=== PATIENT | male | born 2000 | race Caucasian/White ===

== ENCOUNTER 2023-05-08 02:31 | Emergency (ER) | payer BC ==
[2023-05-08] MEDS ORDERED: Ondansetron ODT 4 MG TAB ONE (02:51)
== END 2023-05-08 02:55 | disposition home or self-care (01) ==
LOC: CSHERS 02:31
DX: K29.00 Acute gastritis without bleeding (principal); R11.2 Nausea with vomiting, unspecified
CPT/HCPCS: 99283; Q0162

== ENCOUNTER 2025-04-11 11:50 | Emergency (ER) | payer BC, SELFPAY ==
[2025-04-11 12:54] LABS: #Basophils 0.03 10x3/uL (0.0-0.2); #Eosinophils 0.09 10x3/uL (0.0-0.5); #Monocytes 0.45 10x3/uL (0.0-1.1); #Neutrophils 7.98 10x3/uL (1.5-8.4); %Basophils 0.3 % (0.0-2.0); %Eosinophils 0.9 % (0.0-6.0); %Lymphocytes 13.4 % (18.0-47.0); %Monocytes 4.5 % (0.0-10.0); %Neutrophils 80.6 % (40.0-75.0); Hematocrit 44.0 % (38.8-50.0); Hemoglobin 14.8 g/dL (13.5-17.5); Mean Corpuscular Hemoglobin 27.4 pg (27.0-33.0); Mean Corpuscular Volume 81.5 fL (81.2-95.1); Platelet Count 251 10x3/uL (150-450); Red Blood Cell (RBC) Count 5.40 10x6/uL (4.32-5.72); White Blood Cell (WBC) Count 9.91 10x3/uL (3.5-10.5)
[2025-04-11] MEDS ORDERED: diphenhydrAMINE 50 MG/ML VIAL ONE (12:57)
[2025-04-11] MEDS ORDERED: Metoclopramide HCl 10 MG (2 mL) VIAL ONE (12:57)
[2025-04-11 13:30] LABS: ALT (SGPT) 11 U/L (Less than 45); AST (SGOT) 20 U/L (11-34); Albumin 4.8 g/dL (3.1-4.5); Alkaline Phosphatase 59 U/L (40-110); Anion Gap 18 mmol/L (10-20); BUN (Urea Nitrogen) 10 mg/dL (8.9-20.6); Bilirubin, Total 2.0 mg/dL (0.3-1.2); Calc. Creatinine Clearance 0 mL/min (70-130); Calcium 9.9 mg/dL (7.8-10.44); Carbon Dioxide 20 mmol/L (22-29); Chloride 107 mmol/L (98-107); Globulin 2.8 g/dL (2.4-3.5); Glucose 176 mg/dL (70-105); Lipase 22 U/L (8-78); Potassium 3.4 mmol/L (3.5-5.1); Sodium 142 mmol/L (136-145)
[2025-04-11] MEDS ORDERED: Droperidol 5 MG/2 ML VIAL ONE (14:28)
== END 2025-04-11 15:35 | disposition home or self-care (01) ==
LOC: CSHERS 11:50
DX: R11.2 Nausea with vomiting, unspecified (principal)
CPT/HCPCS: 36415; 80053; 83690; 85025; 96361; 96374; 96375; J1200; J1790; J2765

== ENCOUNTER 2025-04-12 20:40 | Emergency (ER) | payer SELFPAY ==
[2025-04-12] MEDS ORDERED: Droperidol 5 MG/2 ML VIAL ONE (21:13)
[2025-04-12 21:24] LABS: #Basophils 0.03 10x3/uL (0.0-0.2); #Eosinophils Less than 0.03 10x3/uL (0.0-0.5); #Monocytes 0.87 10x3/uL (0.0-1.1); #Neutrophils 8.27 10x3/uL (1.5-8.4); %Basophils 0.3 % (0.0-2.0); %Eosinophils 0.1 % (0.0-6.0); %Lymphocytes 19.7 % (18.0-47.0); %Monocytes 7.6 % (0.0-10.0); %Neutrophils 72.0 % (40.0-75.0); Hematocrit 43.5 % (38.8-50.0); Hemoglobin 15.0 g/dL (13.5-17.5); Mean Corpuscular Hemoglobin 27.8 pg (27.0-33.0); Mean Corpuscular Volume 80.7 fL (81.2-95.1); Platelet Count 264 10x3/uL (150-450); Red Blood Cell (RBC) Count 5.39 10x6/uL (4.32-5.72); White Blood Cell (WBC) Count 11.48 10x3/uL (3.5-10.5)
[2025-04-12 21:41] LABS: ALT (SGPT) 12 U/L (Less than 45); AST (SGOT) 16 U/L (11-34); Albumin 5.1 g/dL (3.1-4.5); Alkaline Phosphatase 64 U/L (40-110); Anion Gap 16 mmol/L (10-20); BUN (Urea Nitrogen) 11 mg/dL (8.9-20.6); Bilirubin, Total 2.6 mg/dL (0.3-1.2); Calc. Creatinine Clearance 0 mL/min (70-130); Calcium 10.1 mg/dL (7.8-10.44); Carbon Dioxide 22 mmol/L (22-29); Chloride 105 mmol/L (98-107); Globulin 2.9 g/dL (2.4-3.5); Glucose 145 mg/dL (70-105); Lipase 47 U/L (8-78); Potassium 3.2 mmol/L (3.5-5.1); Sodium 140 mmol/L (136-145)
[2025-04-12 23:20] LABS: Glucose, Urine (Dipstick) Normal (Negative); Leukocyte 25 (Negative); Protein, Urine (Dipstick) 30 mg/dl (Neg-Trace); Specific Gravity, Urine 1.020 (1.005-1.030)
[2025-04-12 23:36] LABS: Bacteria/HPF None Seen HPF (None Seen); CAUTI Indications for Culture Dysuria,urgency,freq; RBC/HPF None Seen HPF (0-3); WBC/HPF 0-3 HPF (0-3)
[2025-04-12 23:38] LABS: Urine Culture Reflex No No
== END 2025-04-13 00:30 | disposition home or self-care (01) ==
LOC: CSHERS 20:40
DX: R11.2 Nausea with vomiting, unspecified (principal); F12.90 Cannabis use, unspecified, uncomplicated; E86.9 Volume depletion, unspecified; Z79.899 Other long term (current) drug therapy
CPT/HCPCS: 74176; 80053; 81001; 83605; 83690; 85025; 93005; 96361; 96374; J1790

== ENCOUNTER 2025-04-14 02:48 | Observation (INO) | payer SELFPAY ==
[2025-04-14] MEDS ORDERED: Pantoprazole 40 MG VIAL ONE (03:02)
[2025-04-14] MEDS ORDERED: Droperidol 5 MG/2 ML VIAL ONE (03:02)
[2025-04-14 03:42] LABS: #Basophils 0.04 10x3/uL (0.0-0.2); #Eosinophils 0.03 10x3/uL (0.0-0.5); #Monocytes 0.77 10x3/uL (0.0-1.1); #Neutrophils 6.15 10x3/uL (1.5-8.4); %Basophils 0.4 % (0.0-2.0); %Eosinophils 0.3 % (0.0-6.0); %Lymphocytes 24.1 % (18.0-47.0); %Monocytes 8.3 % (0.0-10.0); %Neutrophils 66.5 % (40.0-75.0); Hematocrit 41.4 % (38.8-50.0); Hemoglobin 13.9 g/dL (13.5-17.5); Mean Corpuscular Hemoglobin 27.4 pg (27.0-33.0); Mean Corpuscular Volume 81.5 fL (81.2-95.1); Platelet Count 208 10x3/uL (150-450); Red Blood Cell (RBC) Count 5.08 10x6/uL (4.32-5.72); White Blood Cell (WBC) Count 9.26 10x3/uL (3.5-10.5)
[2025-04-14 03:58] LABS: ALT (SGPT) 13 U/L (Less than 45); AST (SGOT) 20 U/L (11-34); Albumin 4.5 g/dL (3.1-4.5); Alkaline Phosphatase 56 U/L (40-110); Anion Gap 15 mmol/L (10-20); BUN (Urea Nitrogen) 11 mg/dL (8.9-20.6); Bilirubin, Total 2.4 mg/dL (0.3-1.2); Calc. Creatinine Clearance 0 mL/min (70-130); Calcium 9.4 mg/dL (7.8-10.44); Carbon Dioxide 20 mmol/L (22-29); Chloride 107 mmol/L (98-107); Globulin 2.7 g/dL (2.4-3.5); Glucose 121 mg/dL (70-105); Lipase 53 U/L (8-78); Potassium 2.9 mmol/L (3.5-5.1); Sodium 139 mmol/L (136-145)
[2025-04-14] MEDS ORDERED: D5 1/2 NS w/20 mEq KCL 0 ML ONE (04:14)
[2025-04-14] MEDS ORDERED: D5 NS w/ 40 mEq KCl 1,000 ML IV SCH ×2 (04:30)
[2025-04-14] MEDS ORDERED: Calcium Carbonate 500 MG ChewTAB PO PRN (05:17)
[2025-04-14] MEDS ORDERED: Acetaminophen 325 MG TAB PO PRN (05:17)
[2025-04-14] MEDS ORDERED: Ondansetron PF 4 MG/2 ML Vial IVP PRN (05:17)
[2025-04-14] MEDS ORDERED: Senokot S 8.6-50 MG TAB PO PRN (05:17)
[2025-04-14] MEDS ORDERED: Potassium Chloride 20 MEQ in Premix 1 BAG IVPB SCH ×2 (05:30→15:00)
[2025-04-14] MEDS ORDERED: Electrolyte Replacement Protocol 1 EACH FS SCH (05:30)
[2025-04-14] MEDS ORDERED: Metoclopramide HCl 10 MG (2 mL) VIAL IVP SCH (06:00)
[2025-04-14 09:35] LABS: #Basophils Less than 0.03 10x3/uL (0.0-0.2); #Eosinophils Less than 0.03 10x3/uL (0.0-0.5); #Monocytes 0.58 10x3/uL (0.0-1.1); #Neutrophils 6.12 10x3/uL (1.5-8.4); %Basophils 0.2 % (0.0-2.0); %Eosinophils 0.1 % (0.0-6.0); %Lymphocytes 16.6 % (18.0-47.0); %Monocytes 7.2 % (0.0-10.0); %Neutrophils 75.7 % (40.0-75.0); Hematocrit 38.9 % (38.8-50.0); Hemoglobin 12.8 g/dL (13.5-17.5); Mean Corpuscular Hemoglobin 27.5 pg (27.0-33.0); Mean Corpuscular Volume 83.5 fL (81.2-95.1); Platelet Count 190 10x3/uL (150-450); Red Blood Cell (RBC) Count 4.66 10x6/uL (4.32-5.72); White Blood Cell (WBC) Count 8.09 10x3/uL (3.5-10.5)
[2025-04-14 09:52] LABS: Anion Gap 13 mmol/L (10-20); BUN (Urea Nitrogen) 9 mg/dL (8.9-20.6); Calc. Creatinine Clearance 0 mL/min (70-130); Calcium 8.3 mg/dL (7.8-10.44); Carbon Dioxide 20 mmol/L (22-29); Chloride 112 mmol/L (98-107); Glucose 143 mg/dL (70-105); Magnesium 2.1 mg/dL (1.6-2.6); Potassium 3.5 mmol/L (3.5-5.1); Sodium 141 mmol/L (136-145)
[2025-04-14 13:08] LABS: Hematocrit 38.8 % (38.8-50.0); Hemoglobin 12.8 g/dL (13.5-17.5)
[2025-04-14 13:25] LABS: Anion Gap 9 mmol/L (10-20); BUN (Urea Nitrogen) 9 mg/dL (8.9-20.6); Calc. Creatinine Clearance 0 mL/min (70-130); Calcium 8.5 mg/dL (7.8-10.44); Carbon Dioxide 24 mmol/L (22-29); Chloride 109 mmol/L (98-107); Glucose 135 mg/dL (70-105); Magnesium 2.1 mg/dL (1.6-2.6); Potassium 3.3 mmol/L (3.5-5.1); Sodium 139 mmol/L (136-145)
[2025-04-14] MEDS ORDERED: Pantoprazole 40 MG VIAL IVP SCH (21:00)
== END 2025-04-14 14:16 | disposition home or self-care (01) ==
LOC: CSHERS 02:48 → SUATTDRO 02:48 → CSHERHOLD 04:33
PROVIDERS: ADMIT Internal Medicine; ATTEND Physician Assistant
DX: E86.0 Dehydration (principal); F12.10 Cannabis abuse, uncomplicated; E87.6 Hypokalemia; E86.9 Volume depletion, unspecified
CPT/HCPCS: 36415; 80053; 83605; 83690; 83735; 85025; 86850; 86900; 86901; 93005; 96361; 96374; 96375; G0378; J1790; J2470; J3480